=== PATIENT | female | born 1955 | race Caucasian/White ===

== ENCOUNTER 2023-07-05 08:50 | Outpatient (REF) | payer OTHER, SELFPAY ==
[2023-07-05 14:30] LABS: MANUAL DIFF FLAG NO
[2023-07-05 14:44] LABS: Basophils Absolute Auto 0.1 X10*3/uL (0.0-0.2); Basophils Percent Auto 0.7 % (0-2); Eosinophils Absolute Auto 0.3 X10*3/uL (0.0-0.4); Eosinophils Percent Auto 4.4 % (0-4); Hematocrit 44.4 % (37.0-47.0); Hemoglobin 14.6 g/dl (12.0-16.0); Imm Gran Abs Auto 0.02 X10*3/uL (0.00-0.03); Imm Gran Pct Auto 0.3 % (0.0-0.4); Lymphocytes Absolute Auto 2.7 X10*3/uL (1.2-4.9); Lymphocytes Percent Auto 38.9 % (20-40); Mean Corpuscular HGB Conc 32.9 g/dl (31.0-35.0); Mean Corpuscular Volume 88.3 fL (80.0-98.0); Mean Platelet Volume 10.2 fL (9.4-12.3); Monocytes Absolute Auto 0.6 X10*3/uL (0.1-1.2); Monocytes Percent Auto 8.1 % (2-11); Neutrophils Absolute Auto 3.3 x10*3/uL (2.0-8.3); Neutrophils Percent Auto 47.6 % (45-73); Platelet Count 220 X10*3/uL (160-400); Red Blood Count 5.03 X10*6/uL (4.20-5.50); Red Cell Distribution Width 13.2 % (11.0-16.0); White Blood Count 6.8 X10*3/uL (4.8-10.8)
[2023-07-05 14:59] LABS: Anion Gap 13 (12-20); Blood Urea Nitrogen 16 mg/dL (9-16); Calcium 9.8 mg/dL (8.4-10.2); Carbon Dioxide 28 mmol/L (22-29); Chloride 102 mmol/L (96-108); Cholesterol 169 mg/dL (<200); Estimated Glomerular Filt Rate 50; Glucose Random 111 mg/dL (60-115); HDL Cholesterol 54 mg/dL (>40); LDL Cholesterol Calculated 92 mg/dL (<100); Potassium 3.9 mmol/L (3.3-5.1); Sodium 139 mmol/L (135-145); Triglycerides 119 mg/dL (<150)
[2023-07-05 15:18] LABS: TSH reflex Free T4 2.34 uIU/mL (0.32-4.0)
== END 2023-07-05 08:51 | disposition home or self-care (01) ==
LOC: HO.CHCLDS 08:50
PROVIDERS: Visit Provider Internal Medicine
DX: I10 Essential (primary) hypertension (principal); E11.9 Type 2 diabetes mellitus without complications; R23.3 Spontaneous ecchymoses
CPT/HCPCS: 36415; 80048; 80061; 84443; 85025

== ENCOUNTER 2023-11-21 09:20 | Outpatient (REF) | payer OTHER, SELFPAY ==
[2023-11-21 15:12] LABS: Anion Gap 12 (12-20); Blood Urea Nitrogen 20 mg/dL (9-16); Calcium 9.9 mg/dL (8.4-10.2); Carbon Dioxide 30 mmol/L (22-29); Chloride 102 mmol/L (96-108); Estimated Glomerular Filt Rate 51; Glucose Random 109 mg/dL (60-115); Sodium 140 mmol/L (135-145)
== END 2023-11-21 09:21 | disposition home or self-care (01) ==
LOC: HO.CHCLDS 09:20
PROVIDERS: Visit Provider Internal Medicine
DX: I10 Essential (primary) hypertension (principal); E11.9 Type 2 diabetes mellitus without complications
CPT/HCPCS: 36415; 80048; 83735

== ENCOUNTER 2025-02-22 09:25 | Outpatient (REF) | payer OTHER, SELFPAY ==
--- OUTSIDE RECORDS SUMMARY | 2025-02-22 09:29 | XMS_ITS | Clinical Summary ---
Author Organization [employer] Address [address] [place] [address] Care Team Providers Care Caul Puller Name Role Phone Lizbeth Louis MD Primary Care Provider Allergies Active Allergy Reactions Criticality Noted Date Comments Lisinopril Cough 10/31/2022 Medications diphenhydrAMINE (BENADryl) 25 MG tablet Take 1 tab orally qhs prn itching 30 tablet 01/23/20 23 Active triamcinolone (Kenalog) 0.1 % cream Apply topically if needed in the morning and at bedtime (pain and swelling). 30 g 1 01/23/20 23 Active pravastatin (Pravachol) 40 MG tabletIndication s:Hypercholester emia Take 1 tablet (40 mg) by mouth at bedtime. 90 tablet 3 05/04/20 24 Active amLODIPine (Norvasc) 5 MG tabletIndication s:Primary hypertension Take 1 tablet (5 mg) by mouth Once per day. 90 tablet 3 05/04/20 24 025 Active magnesium 30 MG tabletIndication s:Leg cramps Take 1 tablet (30 mg) by mouth Once per day. 30 tablet 11 01/15/20 25 026 Active Tirzepatide (Mounjaro) 2.5 MG/0.5ML solution auto-injectorInd ications:Type 2 diabetes mellitus without complication, without long-term current use of insulin (HCC) Inject 2.5 mg under the skin 1 (one) time per week. 2 mL 1 01/15/20 25 Active metFORMIN XR (Glucophage-XR) 500 MG 24 hr tabletIndication s:Type 2 diabetes mellitus without complication, without long-term current use of insulin (HCC) Take 1 tablet (500 mg) by mouth with evening meal. Do not crush, chew, or split. 30 tablet 11 01/15/20 25 026 Active losartan-hydroCH LOROthiazide (Hyzaar) 100-25 MG tabletIndication s:Primary hypertension TAKE ONE TABLET EVERY MORNING 90 tablet 1 02/20/20 25 Active losartan-hydroCH LOROthiazide (Hyzaar) 100-25 MG tabletIndication s:Primary hypertension TAKE ONE TABLET EVERY MORNING 90 tablet 1 09/03/19 25 025 Discontinued Active Problems Problem Noted Date Diagnosed Date Hypercholesterolemia 08/14/2022 Hypertensive disorder 08/14/2022 Type 2 diabetes mellitus 08/14/2022 Encounters Date Type Department Care Team Description 02/19/2025 Refill [facility] [address] [place] [address] Lizbeth Louis MD Primary hypertension 02/02/2025 Telephone [facility] [address] [place] [address] Lizbeth Louis MD Prior Authorization ([place] ) 01/14/2025 4:00 PM EDT Office Visit [facility] [address] [place] [address] Lizbeth Louis MD Hypercholesterolemia (Primary Dx); Primary hypertension; Type 2 diabetes mellitus without complication, without long-term current use of insulin ([facility]/HCC); Leg cramps; Dietary counseling; Exercise counseling; Class 1 obesity due to excess calories with serious comorbidity and body mass index (BMI) of 31.0 to 31.9 in adult 01/14/2025 Travel 01/06/2025 Patient Outreach [facility] [address] [place], [place] [id number] Lizbeth Louis MD Pre-visit Planning (SDOH screening negative and Tobacco screening negative) from Last 3 Months Immunizations Immunization Administration Dates Next Due Pneumococcal Polysaccharide PPSV23 08/22/2021 Family History Medical History Relation Name Comments Hypertension Father Diabetes type II Mother Heart failure Mother Hypertension Mother Diabetes type II Sister Heart failure Sister Relation Name Status Comments Father Mother Sister Social History Tobacco Use Types Packs/Day Years Used Date Smoking Tobacco: Never Passive Smoke Exposure: Past Smokeless Tobacco: Never Tobacco Cessation:Counseling Given: Not Answered Depression Answer Date Recorded Patient Health Questionnaire-9 Score 0 10/31/2022 Housing Stability Answer Date Recorded What is your housing situation today? I have gustavo velazquez 01/06/[address] you li ve. Do you have problems with any of the following? None of the above;I am not sure 01/06/2025 Food Insecurity Answer Date Recorded Within the past 12 months, y ou worried that your food would run out before you got money to buy more: Never True 01/06/2025 Within the past 12 months,th e food you bought just didn't last and you didn't have enough money to get more: Never True Transportation Answer Date Recorded In the past 12 months, has l ack of transportation kept you from medical appts, meetings, work or from getting things needed for daily living? No 01/06/2025 Utilities Answer Date Recorded In the past 12 months, has t he electric, gas, oil or water company threatened to shut off services in your home? No 01/06/2025 Depression Answer Date Recorded Patient Health Questionnaire-2 Score 0 10/31/2022 Internet Access Answer Date Recorded Internet Access Q1 Yes 01/06/2025 Internet Access Q2 Not on file 01/06/2025 Comments Unknown Sex and Gender Information Value Date Recorded Sex Assigned at Female 03/12/2022 10:40 AM EDT Legal Sex Female 10:40 AM EDT Gender Identity Female 03/12/2022 10:40 AM EDT Sexual Orientation Straight 03/12/2022 10 :40 AM EDT Last Filed Vital Signs Vital Sign Reading Time Taken Comments Blood Pressure 133/63 01/14/2025 4:12 PM EDT Pulse 74 01/14/2025 4:12 PM EDT Temperature 36.5 C (97.7 F) 01/14/2025 4:12 PM EDT Respiratory Rate 20 01/14/2025 4:12 PM EDT Oxygen Saturation 96% 01/14/2025 4:12 PM EDT Inhaled Oxygen Concentration - - Weight 87.1 kg (192 lb) 01/14/2025 4:12 PM EDT Height 165.1 cm (5' 5 ) 01/14/2025 4:12 PM EDT Body Mass Index 31.95 01/14/2025 4:12 PM EDT Plan of Treatment Upcoming Encounters Date Type Department Care Team ([facility] st Contact Info) Description 02/25/2025 4:00 PM EDT Office Visit [facility] [address] [place] [address] Lizbeth Louis MD [address] [place] [address] Health Maintenance Due Date Last Done Comments CT Colonography 1956 Colonoscopy 1956 FIT 1956 Sigmoidoscopy 1956 Alcohol/Substance Use Screening 1968 Hepatitis C Screening 1974 DTaP/Tdap/Td Vaccines (1 - Tdap) 1975 Diabetes: Urine Protein Screening 1975 Zoster Vaccines (1 of 2) 2006 Depression Screening 11/01/2023 10/31/2022, 11/01/19 23 Lipid Panel 07/05/2024 07/05/2023 COVID-19 Vaccine (2 - 2024- season) 2025 09/07/2020 Influenza Vaccine (#1) 2025 Eye Exam 01/30/2025 Diabetes: Hemoglobin A1C 04/15/2025 025, 05/05/2024, 10/03/2023, Additional history exists Pneumococcal Vaccine: 50+ Years (2 of 2 - PCV) 05/04/2025 08/22/2021 Postponed from 08/22/2022 (Patient Refused) FOBT 05/26/2025 05/26/2024 SDOH Screening 01/06/2026 01/06/2025 Diabetes: Foot Exam 01/14/2026 01/14/2025, 10/03/2023, 10/03/2023, Additional history exists Tobacco Screening 01/14/2026 01/14/2025 Mammogram 08/19/2026 08/19/2024, 04/0 01/2025, 08/07/2023 Colorectal Cancer Screening 05/26/2027 FIT DNA/Cologuard 05/26/2027 05/26/2024 RSV Patients and Patients Aged 60 years or older (1 - 1-dose 75+ series) 2031 HIB Vaccines Aged Out No longer eligi ble based on patient's age to complete this topic HPV Vaccines Aged Out No longer eligi ble based on patient's age to complete this topic Hepatitis A Vaccines Aged Out No long er eligible based on patient's age to complete this topic Hepatitis B Vaccines Aged Out No long er eligible based on patient's age to complete this topic IPV Vaccines Aged Out No longer eligi ble based on patient's age to complete this topic Meningococcal B Vaccine Aged Out No l onger eligible based on patient's age to complete this topic Meningococcal Vaccine Aged Out No smith dylan eligible based on patient's age to complete this topic RSV under 20 months Aged Out No longe r eligible based on patient's age to complete this topic Rotavirus Vaccines Aged Out No longer eligible based on patient's age to complete this topic Procedures Procedure Name Priority Date/Time Associated Diagnosis Comments POCT GLUCOSE Routine 01/14/2025 4:28 PM EDT Type 2 diabetes mellitus without complication, without long-term current use of insulin (CMS/HCC) POCT GLYCATED HEMOGLOBIN, TOTAL Routine 01/14/2025 4:27 PM EDT Type 2 diabetes mellitus without complication, without long-term current use of insulin (CMS/HCC) LAB COLOGUARD COLON CANCER SCREEN Routine 05/26/2024 6:30 AM EST Screening for colon cancer HM MAMMOGRAPHY Routine 08/07/2023 5:37 PM EDT LIPID PANEL, STANDARD Routine 07/05/2023 9:00 AM EST Primary hypertension Type 2 diabetes mellitus without complication, without long-term current use of insulin (CMS/HCC) Easy bruising from Last 3 Months or Most Recently Relevant to Health Maintenance Results * POCT Glucose (01/14/2025 4:28 PM EDT) Glucose Blood, POC 148 60 - 200 mg/dL QC Media Lot # [id number] Lot# Expiration Date Comment:random Blood Capillary blood specimen / Unknown 01/14/2025 4:28 PM EDT Lizbeth Louis MD POINT OF CARE TEST ENTER/ED IT ORDERABLES Final Result * (ABNORMAL) POCT Hgb A1c (01/14/2025 4:27 PM EDT) Hemoglobin A1C 7.0(A) 4.0 - 5.7 % QC Media Lot # [id number] Lot# Expiration Date 396,062 Blood 01/14/2025 4:27 PM EDT Lizbeth Louis MD POINT OF CARE TEST ENTER/ED IT ORDERABLES Final Result * Cologuard?? colon cancer screening (05/26/2024 6:30 AM EST) Cologuard Result Negative Negative 06/03/19 11:47 AM EST [facility] (CLIA #:[id number]) Comment: NEGATIVE TEST RESULT. A negative Cologuard result indicates a low likelihood that a colorectal cancer (CRC) or advanced adenoma (adenomatous polyps with more advanced pre-malignant features) is present. The chance that a person with a negative Cologuard test has a colorectal cancer is less than 1 in 1500 (negative predictive value >99.9%) or has an advanced adenoma is less than 5.3% (negative predictive value 94.7%). These data are based on a prospective cross-sectional study of 10,000 individuals at average risk for colorectal cancer who were screened with both Cologuard and colonoscopy. (Renee Pedro al, N Engl J Med 2014;370(14):5490-8073) The normal value (reference range) for this assay is negative. COLOGUARD RE-SCREENING RECOMMENDATION: Periodic colorectal cancer screening is an important part of preventive healthcare for asymptomatic individuals at average risk for colorectal cancer. Following a negative Cologuard result, the [place] Cancer Society and U.S. Multi-Society Task Force screening guidelines recommend a Cologuard re-screening interval of 3 years. References: [place] [employer] Guideline for Colorectal Cancer Screening: https://www.cancer.org/cancer/lvlhf-ridhwc-fwmdvj/nlilqkfyk-zwhhwizdo-unuxdnh/ac s-rec ommendations.html.; Scott TRUJILLO, Ellie JARA, Judi HarperK, Colorectal Cancer Screening: Recommendations for Physicians and Patients from the U.S. Multi-Society Task Force on Colorectal Cancer Screening , Am J Gastroenterology 2017; 112:8326-0785. TEST DESCRIPTION: Composite algorithmic analysis of stool DNA-biomarkers with hemoglobin immunoassay. Quantitative values of individual biomarkers are not reportable and are not associated with individual biomarker result reference ranges. Cologuard is intended for colorectal cancer screening of adults of either sex, 45 years or older, who are at average-risk for colorectal cancer (CRC). Cologuard has been approved for use by the U.S. FDA. The performance of Cologuard was established in a cross sectional study of average-risk adults aged 50-84. Cologuard performance in patients ages 45 to 49 years was estimated by sub-group analysis of near-age groups. Colonoscopies performed for a positive result may find as the most clinically significant lesion: colorectal cancer [4.0%], advanced adenoma (including sessile serrated polyps greater than or equal to 1cm diameter) [20%] or non- advanced adenoma [31%]; or no colorectal neoplasia [45%]. These estimates are derived from a prospective cross-sectional screening study of 10,000 individuals at average risk for colorectal cancer who were screened with both Cologuard and colonoscopy. (Renee Schwarz et al, N Engl J Med 2014;370(14):4708-7807.) Cologuard may produce a false negative or false positive result (no colorectal cancer or precancerous polyp present at colonoscopy follow up). A negative Cologuard test result does not guarantee the absence of CRC or advanced adenoma (pre-cancer). The current Cologuard screening interval is every 3 years. ([place] [employer] Society and U.S. Multi-Society Task Force). Cologuard performance data in a 10,000 patient pivotal study using colonoscopy as the reference method can be accessed at the following location: www.[employer] (STIE)/results. Additional description of the Cologuard test process, warnings and precautions can be found at www.[email or web address] (STIE). Stool specimen (specimen) 05/26/2024 6:30 AM EST 05/27/2024 1:13 PM EST Lizbeth Louis MD LAB MOLECULAR DIAGNOSTICS O RDERABLES Final Result [facility] (CLIA #:[id number]) [place] [address], * Hm Mammography (08/07/2023 5:37 PM EDT) Anatomical Region Laterality Modality Other Historical Provider HEALTH MAINTENANCE Final Result * Lipid Panel, Standard (07/05/2023 9:00 AM EST) Triglycerides 119 <150 mg/dL [facility] Comment:Desirable Triglyceri de: less than 150 mg/dLBorderline High Triglyceride 150-199 mg/dLHigh Triglyceride: 200-499 mg/dLVery High Triglyceride: greater than or equal to 5OO mg/dL Cholesterol 169 <200 mg/dL [facility] Comment:Desirable Cholestero l: less than 200 mg/dLBorderline High Cholesterol: 200-239 mg/dLHigh Cholesterol: greater than 239 mg/dL LDL Cholesterol Calculated 92 <100 mg/dL [facility] Comment:Desirable LDL: less than 100 mg/dLNear Optimal/Above Optimal LDL: 110- 129 mg/dLBorderline High LDL: 130-159 mg/dLHigh LDL: 160-189 mg/dLVery High LDL: greater than or equal to 190 mg/dL HDL Cholesterol 54 >40 mg/dL [facility] Comment:Desirable HDL: great er than 40 mg/dL Note: This HDL assay may give artificially low results in patients with liver disease. Blood Venous blood specimen / Unknown 07/05/2023 9:00 AM EST 07/05/2023 2:23 PM EST Lizbeth Louis MD LAB BLOOD ORDERABLES Final Result [facility] [address] [place] [address] [phone] from Last 3 Months or Most Recently Relevant to Health Maintenance Insurance MEDICARE [facility] Address: [facility] [address] [place] [id number] [place] [id number] [employer] Care Teams Caul Puller Relationship Specialty Start Date End Date Lizbeth Louis MD [address] [place] [address] [place] [address] PCP - General Internal Medicine 02/28/22
--- OUTSIDE RECORDS SUMMARY | 2025-02-22 09:29 | XMS_ITS | Encounter Summary ---
Author Organization [email or web address] Address [address] [place] [address] Care Team Providers Care Refrigeration Repair Supervisor Name Role Phone Lizbeth Louis MD Primary Care Provider [phone] Reason for Referral * Imaging (Routine) - Closed Specialty Diagnoses / Procedures Referred By Contgriselda t Referred To Contact Diagnoses Post-menopausal Procedures BD DEXA Axial Lizbeth Louis MD [address] [place] [address] Phone: tel: fax: [address] Phone: tel: fax: Referral ID Status Reason Start Date Expiration Date Visits Re quested Visits Authorized [id number] Closed 08/30/2022 02/26/2023 1 1 Encounter Details Date Type Department Care Team (Late st Contact Info) Description 08/30/2022 Orders Only [facility] [address] [place], [place] [phone] Lizbeth Louis MD [address] [place], [place] [phone] Post-menopausal (Primary Dx) Social History Tobacco Use Types Packs/Day Years Used Date Smoking Tobacco: Never Assessed Comments Unknown Sex and Gender Information Value Date Recorded Sex Assigned at Female 03/12/2022 10:40 AM EDT Legal Sex Female 10:40 AM EDT Gender Identity Female 03/12/2022 10:40 AM EDT Sexual Orientation Straight 03/12/2022 10 :40 AM EDT COVID-19 Exposure Response Date Recorded In the last 10 days, have yo u been in contact with someone who was confirmed or suspected to have Coronavirus/COVID-19? No / Unsure 08/14/2022 8:51 AM EDT documented as of this encounter Plan of Treatment Upcoming Encounters Date Type Department Care Team ([facility] st Contact Info) Description 02/25/2025 4:00 PM EDT Office Visit [facility] [address] [place] [address] Lizbeth Louis MD [address] [place] [address] Scheduled Orders Name Type Priority Associated Diagnoses Orde r Schedule BD DEXA Axial Imaging Routine Post-menopausal Expected: 08/30/2022 (Approximate), Expires: 08/31/2023 documented as of this encounter Visit Diagnoses Diagnosis Post-menopausal- Primary Asymptomatic postmenopausal status (age-related) (natural) documented in this encounter Care Teams Refrigeration Repair Supervisor Relationship Specialty Start Date End Date Lizbeth Louis MD [address] [place] [address] PCP - General Internal Medicine 02/28/22 documented as of this encounter
--- OUTSIDE RECORDS SUMMARY | 2025-02-22 09:29 | XMS_ITS | Encounter Summary ---
Author Organization [employer] Address [address] [place] [address] [address] [place] [address] Care Team Providers Care Legal Support Analyst Name Role Phone Lizbeth Louis MD Primary Care Provider [phone] Reason for Visit * Reason Comments Med Refill Encounter Details Date Type Department Care Team ([facility] st Contact Info) Description 02/19/2025 Refill [facility] [address] [place], [place] [phone] Lizbeth Louis MD [address] [place] [address] Primary hypertension Social History Tobacco Use Types Packs/Day Years Used Date Smoking Tobacco: Never Passive Smoke Exposure: Past Smokeless Tobacco: Never Depression Answer Date Recorded Patient Health Questionnaire-9 [...] the past 12 months, has t he [employer], oil or water company threatened to shut [...] Orientation Straight 03/12/2022 10 :40 AM EDT documented as of this encounter Plan of Treatment Upcoming Encounters Date Type Department Care Team (Late st Contact Info) Description 02/25/2025 4:00 PM EDT Office Visit [facility] [address] [place] [address] Lizbeth Louis MD [address] [place] [address] documented as of this encounter Visit Diagnoses Diagnosis Primary hypertension Unspecified essential hypertension documented in this encounter Additional Health Concerns Assessment Noted Time PHQ-9 Depression Total Score: 0 11/01/19 23 9:13 AM EDT documented as of this encounter Care Teams Legal Support Analyst Relationship Specialty Start Date End Date Lizbeth Louis MD [address] [place] [address] PCP - General Internal Medicine 02/28/22 documented as of this encounter
--- OUTSIDE RECORDS SUMMARY | 2025-02-22 09:29 | XMS_ITS | Clinical Summary ---
Author Organization [facility] [address] [place] [address] [place] [address] Phone Care Team Providers Care Senior Radiation Therapist Name Role Phone Stefania Camejo MD Primary Care Provider [phone] Allergies No known active allergies Medications blood-glucose meter kit Used to check glucose levels 1-2 times daily. 08/22/2021 Active FREESTYLE LANCETS MISC Used to check glucose levels 1-2 times daily. 08/22/2021 Active blood sugar diagnostic (FreeStyle Lite Strips) test strip Used to check glucose levels 1-2 times daily. 08/22/2021 Active metFORMIN XR (GLUCOPHAGE-XR) 500 mg 24 hr tablet TAKE 2 TABLETS BY MOUTH TWICE DAILY WITH MEALS 02/02/2022 Active pravastatin (PRAVACHOL) 40 mg tablet Take 1 Tablet by mouth daily. 12/29/2021 Active Active Problems Problem Noted Date Diagnosed Date Type 2 diabetes mellitus with obesity 07/20/2021 Overview (02/10/2025): 02/10/25 Regulatory IMO Update Hypertension 06/21/2021 Overview (05/04/2024): Last Assessment & Plan: Asymptomatic, ran out of BP meds two days ago. Vaginal lesion 06/21/2021 Overview (05/04/2024): Last Assessment & Plan: Patient instructed to return for vaginal biopsy. Cholelithiasis 09/27/2020 Renal cyst, left 09/27/2020 Overview (05/04/2024): Ct with contrast pending OA (osteoarthritis) of hip 07/02/2019 Overview (05/04/2024): L THR 07/2019, R THR 02/2020 Hyperlipidemia 09/03/2017 Obesity (BMI 30.0-34.9) 09/03/2017 Immunizations Immunization Administration Dates Next Due Moderna SARS-CoV-2 COVID-19, mRNA, LNP-S, preservative free 09/07/2020 Pneumococcal polysaccharide 23 valent (Pneumovax 23) 2yo and older 08/22/2021 Surgical History Surgery Date Site/Laterality Comments TUBAL LIGATION PROCEDURE: HISTORICAL TUBAL LIGATION HIP ARTHROPLASTY Bilateral PROCEDURE: HISTORICAL HIP REPLACEMENT BREAST BIOPSY PROCEDURE: BX BREAST; PERC NEEDLE CORE W/IMAG GUID Family History Medical History Relation Name Comments Diabetes Father CAD Uterine cancer Mother CHF No Known Problems Other Breast cancer Neg Hx Colon cancer Neg Hx Ovarian cancer Neg Hx Pancreatic cancer Neg Hx Relation Name Status Comments Brother Alive Father Mother Other Social History Tobacco Use Types Packs/Day Years Used Date Smoking Tobacco: Former Cigarettes Q uit: 09/04/2007 Smokeless Tobacco: Former Alcohol Use Standard Drinks/Week Comments Yes 0 (1 standard drink = 0.6 oz pur e alcohol) Comments No Sex and Gender Information Value Date Recorded Sex Assigned at Not on file Legal Sex Female 6:29 PM EST Gender Identity Not on file Sexual Orientation Not on file Obstetrics History Para Term AB IAB SAB Ectopic Multiple Livin g Live Births 2 2 2 2 Date Outcome GA Total Labor Labor/2nd/3rd Weight Sex Type Anes PTL Shayna A1 A5 Name Clin Term Term Last Filed Vital Signs Vital Sign Reading Time Taken Comments Blood Pressure 180/84 07/17/2022 10:16 AM EST Pulse 74 07/17/2022 9:37 AM EST Temperature - - Respiratory Rate - - Oxygen Saturation - - Inhaled Oxygen Concentration - - Weight 87.6 kg (193 lb 3.2 oz) 07/17/2022 9:37 A M EST Height 165.1 cm (5' 5 ) 07/17/2022 9:37 AM EST Body Mass Index 32.15 07/17/2022 9:37 AM EST Plan of Treatment Upcoming Encounters Date Type Department Care Team (Late st Contact Info) Description 08/20/2025 9:00 AM EDT Appointment Radiology Department - [place] [address] [place] [address] Health Maintenance Due Date Last Done Comments Diabetes: Annual Foot Exam 1966 Diabetes: Annual Retina Eye Exam 1966 DTaP,Tdap,and Td Vaccines (1 - Tdap) 1975 Zoster Vaccines (1 of 2) 2006 Falls Risk Assessment 04/21/2022 Osteoporosis Screening (Bone Density Screening) 04/21/2022 Social Influencers of Health Screening 04/21/2022 Pneumococcal Vaccine: 50+ Years (2 of 2 - PCV) 08/22/2022 08/22/2021 Diabetes: Annual Urine Albumin-Creatinine Ratio (uACR) 12/22/2022 12/22/2021 Diabetes: Annual GFR (Glomerular Filtration Rate) 12/22/2022 12/22/2021 Hypertension/CHF/CAD Annual BMP Blood Test 12/22/2022 12/22/2021 Depression Screening 05/13/2024 Diabetes: Blood Sugar Control Test (HGBA1C) 11/03/2024 05/05/2024, 04/08/2023, 12/22/2021 COVID-19 Vaccine ( season) 2025 09/07/2020, 08/10/2020 Influenza Vaccine (#1) 2025 Breast Cancer Screening 08/19/2026 08/20/19 25, 08/07/2023, 08/07/2023, Additional history exists Colorectal Cancer Screening: FIT-DNA (Cologuard) 05/26/2027 05/26/2024 Cholesterol Screening (Lipid Panel) 07/05/2028 07/05/2023, 12/22/2021 RSV Immunization Adult Patients (1 - 1-dose 75+ series) 2031 Hepatitis C Screening Completed 07/14/2019 HIB Vaccines Aged Out No longer eligi [...] on patient's age to complete this topic MMR Vaccines Aged Out No longer eligi ble based on patient's age to complete this topic Meningococcal ACWY Vaccine Aged Out N o longer eligible based on patient's age to complete this topic Meningococcal B Vaccine Aged Out No l onger eligible based on patient's age to complete this topic RSV Immunization Patients Under 20 months Aged Out No longer eligible based on patient's age to complete this topic Varicella Vaccines Aged Out No longer eligible based on patient's age to complete this topic Procedures Procedure Name Priority Date/Time Associated Diagnosis Comments MG MAMMO DIGITAL SCREENING W SRIKANTH BILAT Routine 08/19/2024 9:25 AM EDT Encounter for screening mammogram for breast cancer URINE ALBUMIN CREATININE RATIO Routine 12/22/2021 ANNUAL BMP BLOOD TEST Routine 12/22/2021 HEMOGLOBIN A1C Routine 12/22/2021 LIPID PANEL Routine 12/22/2021 HEPATITIS C SCREENING Routine 07/14/2019 from Last 3 Months or Most Recently Relevant to Health Maintenance Results * MG Mammo Digital Screening w Srikanth bilat (08/19/2024 9:25 AM EDT) Anatomical Region Laterality Modality Breast Bilateral Mammography 08/19/2024 11:3 3 AM EDT Impressions 08/19/2024 11:38 AM EDT No mammographic evidence for malignancy. BI-RADS CATEGORY: 1 - NEGATIVE RECOMMENDATION: Screening bilateral mammogram is recommended in 1 year. Mammo Location: [place] [facility], [address] [place] [address], [id number], . -------- FINAL REPORT -------- Dictated By: Neva Sanders Dictated Date: 08/19/2024 11:33 ET Assigned Physician: Neva Sanders Reviewed and Electronically Signed By: Neva Sanders Signed Date: 08/19/2024 11:38 ET Workstation ID: [id number] Transcribed By: Self Edit Transcribed Date: 08/19/2024 11:33 ET Narrative 08/19/2024 11:38 AM EDT Bilateral screening mammogram. CLINICAL: 69 years old, Female, routine annual exam. COMPARISON: Prior studies, latest from 08/07/2023. TECHNIQUE: Bilateral MLO and CC views were obtained digitally with 2-D C views views and with 3-D mammogram (digital breast tomosynthesis). Computer-aided detection was utilized in evaluation of this exam (CAD). FINDINGS: There is no evidence of suspicious mass or architectural distortion. No worrisome calcifications are evident. There has been no significant change from prior exam(s). BREAST DENSITY: B - There are scattered areas of fibroglandular density. Procedure Note Neva Sanders MD - 08/19/2024 Bilateral screening mammogram. CLINICAL: 69 years old, Female, routine annual exam. COMPARISON: Prior studies, latest from 08/07/2023. TECHNIQUE: Bilateral MLO and CC views were obtained digitally with 2-D Cviews views and with 3-D mammogram (digital breast tomosynthesis).Computer-aided detection was utilized in evaluation of this exam (CAD). FINDINGS: There is no evidence of suspicious mass or architectural distortion. Noworrisome calcifications are evident. There has been no significantchange from prior exam(s). BREAST DENSITY: B - There are scattered areas of fibroglandular density. IMPRESSION: No mammographic evidence for malignancy. BI-RADS CATEGORY: 1 - NEGATIVE RECOMMENDATION: Screening bilateral mammogram is recommended in 1 year. Mammo Location: [place] [facility], [address] [place] [address], [id number], . -------- FINAL REPORT -------- Dictated By: Neva Sanders Dictated Date: 08/19/2024 11:33 ET Assigned Physician: Neva Sanders Reviewed and Electronically Signed By: Neva Sanders Signed Date: 08/19/2024 11:38 ET Workstation ID: [id number] Transcribed By: Self Edit Transcribed Date: 08/19/2024 11:33 ET Result [facility] Stefania Camejo MD IMG BI PROCEDURES Final Result * Urine Albumin Creatinine Ratio (12/22/2021) [facility]ologist [facility] Urine Albumin Creatinine Ratio Abstracted Result [facility] Historical Provider HEALTH MAINTENANCE Final Result * Annual BMP Blood Test (12/22/2021) [facility] Annual BMP Blood Test Abstracted Result [facility] Provider HEALTH MAINTENANCE Final Result * (ABNORMAL) Hemoglobin A1c (12/22/2021) [facility] Hemoglobin A1C 7.8(A) <=6.5 % Blood Venous blood specimen / Unknown Result [facility] Historical Provider LAB BLOOD ORDERABLES Iesha l Result * (ABNORMAL) Lipid panel (12/22/2021) [facility] LDL/HDL Ratio 5(A) 0 - 4 Triglycerides 158(A) 0 - 150 mg/dL Cholesterol 198 0 - 200 mg/dL HDL 42 >=40 mg/dL LDL Cholesterol 125(A) 0 - 100 mg/dL Blood Venous blood specimen / Unknown Result [facility] Historical Provider LAB BLOOD ORDERABLES Iesha l Result * Hepatitis C Screening (07/14/2019) [facility] Hepatitis C Screening Abstracted Result [facility] Historical Provider HEALTH MAINTENANCE Final Result from Last 3 Months or Most Recently Relevant to Health Maintenance [facility] Care Teams Senior Radiation Therapist Relationship Specialty Start Date End Date Stefania Camejo MD [address] [place] [address] PCP - General Internal Medicine 03/17/21
--- OUTSIDE RECORDS SUMMARY | 2025-02-22 09:29 | XMS_ITS | Encounter Summary ---
Author Organization [employer] Address [address] [place] [address] 7 [place] [address] Care Team Providers Care Fountain Jerk Name Role Phone Lizbeth Louis MD Primary Care Provider [phone] Encounter Details Date Type Department Care Team ([facility] st Contact Info) Description 07/04/2023 Orders Only [facility] MED & PEDS [address] [place], [place] [phone] Lizbeth Louis MD [address] [place] [address] Primary hypertension (Primary Dx) Social History Tobacco Use Types Packs/Day Years Used Date Smoking Tobacco: Never Passive Smoke Exposure: Past Smokeless Tobacco: Never Depression Answer Date Recorded Patient Health Questionnaire-9 Score 0 10/31/2022 Housing Stability Answer Date Recorded What is your housing situation today? I have gustavo velazquez 02/28/[address] you li ve. Do you have problems with any of the following? None of the above 02/28/2023 Food Insecurity Answer Date Recorded Within the past 12 months, y ou worried that your food would run out before you got money to buy more: Never True 02/28/2023 Within the past 12 months,th e food you bought just didn't last and you didn't have enough money to get more: Never True Transportation Answer Date Recorded In the past 12 months, has l ack of transportation kept you from medical appts, meetings, work or from getting things needed for daily living? No 02/28/2023 Utilities Answer Date Recorded In the past 12 months, has t he electric, gas, oil or water company threatened to shut off services in your home? No 02/28/2023 Depression Answer Date Recorded Patient Health Questionnaire-2 Score 0 10/31/2022 Comments Unknown Sex and Gender Information Value [...] Description 02/25/2025 4:00 PM EDT Office Visit [facility] MED & PEDS [address] [place] [address] Lizbeth Louis MD [address] [place] [address] documented as of this encounter Visit Diagnoses Diagnosis Primary hypertension- Primary Unspecified essential hypertension documented in this encounter Additional Health Concerns Assessment Noted Time PHQ-9 Depression Total Score: 0 11/01/19 23 9:13 AM EDT documented as of this encounter Care Teams Fountain Jerk Relationship Specialty Start Date End Date Lizbeth Louis MD [address] [place] [address] PCP - General Internal Medicine 02/28/22 documented as of this encounter
--- OUTSIDE RECORDS SUMMARY | 2025-02-22 09:29 | XMS_ITS | Encounter Summary ---
Author Organization [employer] Address [address] [place] [address] [place] [address] Care Team Providers Care Director Industrial Name Role Phone Lizbeth Louis MD Primary Care Provider [phone] Reason for Visit * Reason Comments Med Refill Encounter Details Date Type Department Care Team (Late Contact Info) Description 01/17/2023 Refill [facility] MED & PEDS [address] [place] [address] Jody Cervantes MD [address] [place], [place] [phone] Social History Tobacco Use Types Packs/Day Years Used Date Smoking Tobacco: Never Passive Smoke Exposure: Past Smokeless Tobacco: Never Depression Answer Date Recorded Patient Health Questionnaire-9 Score 0 10/31/2022 Depression Answer Date Recorded Patient Health Questionnaire-2 [...] PM EDT Office Visit [facility] MED & PEDS [address] [place] [address] Lizbeth Louis MD [address] [place] [address] documented as of this encounter Visit Diagnoses Not on filedocumented in this encounter Additional Health Concerns Assessment Noted Time PHQ-9 Depression Total Score: 0 11/01/19 23 9:13 AM EDT documented as of this encounter Care Teams Director Industrial Relationship Specialty Start Date End Date Lizbeth Louis MD [address] [place] [address] PCP - General Internal Medicine 02/28/22 documented as of this encounter
--- OUTSIDE RECORDS SUMMARY | 2025-02-22 09:29 | XMS_ITS | Encounter Summary ---
Author Organization [employer] Address [address] [place] [address] 7 [place] [address] Care Team Providers Care Pest Control Worker Helper Name Role Phone Lizbeth Louis MD Primary Care Provider [phone] Encounter Details Date Type Department Care Team ([facility] st Contact Info) Description 11/22/2023 Orders Only [facility] CHC MED & PEDS [address] [place], [place] [phone] Lizbeth Louis MD [address] [place] [address] Primary hypertension (Primary Dx) Social History Tobacco [...] 02/25/2025 4:00 PM EDT Office Visit [facility]ED[facility] [address] [place] [address] Lizbeth Louis MD [address] [place] [address] Scheduled Orders Name Type Priority Associated Diagnoses Orde r Schedule Basic Metabolic Panel Lab Routine Primary hypertension Expected: 11/22/2023 (Approximate), Expires: 11/21/2024 documented as of this encounter Visit Diagnoses Diagnosis Primary hypertension- Primary Unspecified essential hypertension documented in this encounter Additional Health Concerns Assessment Noted Time PHQ-9 Depression Total Score: 0 11/01/19 23 9:13 AM EDT documented as of this encounter Care Teams Pest Control Worker Helper Relationship Specialty Start Date End Date Lizbeth Louis MD [address] [place] [address] PCP - General Internal Medicine 02/28/22 documented as of this encounter
--- OUTSIDE RECORDS SUMMARY | 2025-02-22 09:29 | XMS_ITS | Encounter Summary ---
Author Organization [employer] Address [address] [facility] [address] [place] [address] Care Team Providers Care Signals Collection Technician Name Role Phone Lizbeth Louis MD Primary Care Provider [phone] Encounter Details Date Type Department Care Team ([facility] st Contact Info) Description 05/03/2024 Orders Only [facility] MEDICINE [address] [place] [address] ProviderAly MD Social History Tobacco Use Types Packs/Day Years Used Date Smoking Tobacco: Never Passive Smoke Exposure: Past Smokeless Tobacco: Never Depression Answer Date Recorded Patient Health Questionnaire-9 Score 0 10/31/2022 Housing Stability Answer Date Recorded What is your housing situation today? I have gustavo marcus 02/28/[address] you li [...] Upcoming Encounters Date Type Department Care Team ([facility] st Contact Info) Description 02/25/2025 4:00 PM EDT Office Visit [facility] MED & PEDS [address] [place] [address] Lizbeth Louis MD [address] [place] [address] documented as of this encounter Procedures Procedure Name Priority Date/Time Associated Diagnosis Comments HM MAMMOGRAPHY Routine 08/07/2023 5:37 PM EDT documented in this encounter Results * Hm Mammography (08/07/2023 5:37 PM EDT) Anatomical Region Laterality Modality Other Historical Provider HEALTH MAINTENANCE Final Result documented in this encounter Visit Diagnoses Not on filedocumented in this encounter Additional Health Concerns Assessment Noted Time PHQ-9 Depression Total Score: 0 11/01/19 23 9:13 AM EDT documented as of this encounter Care Teams Signals Collection Technician Relationship Specialty Start Date End Date Lizbeth Louis MD [address] [place] [address] PCP - General Internal Medicine 02/28/22 documented as of this encounter
[2025-02-22 14:18] LABS: MANUAL DIFF FLAG NO
[2025-02-22 14:24] LABS: Hematocrit 43.5 % (37.0-47.0); Hemoglobin 14.0 g/dl (12.0-16.0); Imm Gran Abs Auto 0.02 X10*3/uL (0.00-0.03); Imm Gran Pct Auto 0.3 % (0.0-0.4); Lymphocytes Absolute Auto 2.4 X10*3/uL (1.2-4.9); Mean Corpuscular HGB Conc 32.2 g/dl (31.0-35.0); Mean Corpuscular Hemoglobin 29.9 pg (27.0-33.0); Mean Corpuscular Volume 92.8 fL (80.0-98.0); NRBC Abs Auto 0.000 X10*3/uL (0.0-0.012); NRBC Pct Auto 0.0 /100WBC (0.0-0.2); Platelet Count 269 X10*3/uL (160-400); Red Blood Count 4.69 X10*6/uL (4.20-5.50); White Blood Count 6.7 X10*3/uL (4.8-10.8)
[2025-02-22 14:43] LABS: Microalbum/Creatinine Ratio Ur 44.9 ug/mg cr (<30)
[2025-02-22 14:56] LABS: Alanine Aminotransferase 14 U/L (0-31); Albumin Level 4.2 g/dL (3.5-5.0); Alkaline Phosphatase 72 U/L (39-117); Anion Gap 15 (12-20); Aspartate Amino Transferase 21 U/L (5-31); Blood Urea Nitrogen 18 mg/dL (9-16); Calcium 9.5 mg/dL (8.4-10.2); Carbon Dioxide 26 mmol/L (22-29); Chloride 102 mmol/L (96-108); Cholesterol 187 mg/dL (<200); Estimated Glomerular Filt Rate 49; HDL Cholesterol 45 mg/dL (>40); Magnesium 1.9 mg/dL (1.6-2.6); Potassium 4.3 mmol/L (3.3-5.1); Sodium 139 mmol/L (135-145); Total Protein 7.0 g/dL (6.5-8.0); Triglycerides 172 mg/dL (<150)
== END 2025-02-22 09:26 | disposition home or self-care (01) ==
LOC: HO.CHCLDS 09:25
PROVIDERS: Visit Provider Internal Medicine
DX: I10 Essential (primary) hypertension (principal); E11.9 Type 2 diabetes mellitus without complications; R25.2 Cramp and spasm
CPT/HCPCS: 36415; 80053; 80061; 82043; 82570; 83735; 84443; 85025